=== PATIENT | male | born 2000 | race Caucasian/White ===

== ENCOUNTER 2023-01-05 14:46 | Emergency (ER) | payer OTHER ==
[~2023-01-05] VITALS: Ht 188 cm; Wt 100.0 kg
--- NOTE | 2023-01-06 06:41 | OR ---
[facility] [address], [place] [address] Signed DATE OF OPERATION: 01/05/2023 SURGEON: Angelica Mc MD PREOPERATIVE DIAGNOSES: 1. Suicide attempt. 2. Lacerations, bilateral upper extremities and left neck. POSTOPERATIVE DIAGNOSES: 1. Suicide attempt. 2. Lacerations, bilateral upper extremities and left neck. PROCEDURE: Placement of right femoral triple-lumen catheter. ESTIMATED BLOOD LOSS: Minimal. INDICATIONS: Saranya is a 22-year-old gentleman from our [facility]. Unfortunately, he attempted suicide this afternoon. He had very deep lacerations in his bilateral forearms requiring tourniquets and also a laceration to his left neck. I had been called by the emergency room to assist. When I came, he was just intubated by our ER doctor, Marcin Monae. I was directed by Dr. Monae to place the right femoral triple-lumen catheter. In the meantime, they were working with his tourniquets on his upper extremities. PROCEDURE NOTE: Saranya was lying supine on the Trauma bed here in our ER. His right groin was prepped and draped in the usual sterile fashion. I did not use local anesthetic as he was already pharmacologically paralyzed, sedated and intubated. I was easily able to palpate the right femoral artery. The 1st pass of the needle went in the artery but the 2nd pass went into the right femoral vein. We were able to draw dark nonpulsatile blood. The wire was passed without any resistance whatsoever. The track was dilated and our dilator passed without resistance and it curved in the appropriate direction. The triple-lumen catheter was then passed over the wire without resistance all the way up to the hub. All three ports were able to draw and flush dark venous blood without difficulty. The triple-lumen catheter was held in place with three interrupted silk sutures. Dressing was applied per nursing staff. No x-ray necessary. The triple-lumen catheter is Electronically Signed By: ANGELICA MC MD 01/06/23 0641 PATIENT NAME: SARANYA LINO OPERATIVE REPORT DATE OF : [birth year] REPORT #: [id number] PHYSICIAN: ANGELICA MC MD PCP: NO PRIMARY CARE PHYSICIAN REPORT IS CONFIDENTIAL AND NOT TO BE RELEASED WITHOUT AUTHORIZATION [address] [address] Signed currently in use by our nursing staff. In the meantime, [facility] has been called and arrangements are being made for him to go to a higher level trauma center. MD CATIA Pappas/ROBERTL /[id number] cc: Angelica Mc MD Copies: ANGELICA MC MD ~ Electronically Signed By: ANGELICA MC MD 01/06/23 0641 PATIENT NAME: SARANYA LINO OPERATIVE REPORT DATE OF : [birth year] REPORT #: [id number] PHYSICIAN: ANGELICA MC MD PCP: NO PRIMARY CARE PHYSICIAN REPORT IS CONFIDENTIAL AND NOT TO BE RELEASED WITHOUT AUTHORIZATION
== END 2023-01-05 18:06 | disposition short-term general hospital (02) ==
LOC: ED 14:46
DX: S15.302A Unspecified injury of left internal jugular vein, initial encounter (principal); S56.922A Laceration of unspecified muscles, fascia and tendons at forearm level, left arm, initial encounter; S51.012A Laceration without foreign body of left elbow, initial encounter; S51.011A Laceration without foreign body of right elbow, initial encounter; Z23 Encounter for immunization; X83.8XXA Intentional self-harm by other specified means, initial encounter
CPT/HCPCS: 31500; 36415; 36430; 71045; 80053; 82150; 82553; 83605; 83690; 85025; 86850; 86900; 86901; 86922; 87502; 90715; 94002; 99285-25; G0480; J0690; J3010; J7060; P9016; U0003